=== PATIENT | female | born 1980 | race Caucasian/White ===

== ENCOUNTER 2017-09-11 09:08 | Emergency (ER) | payer MEDICAID ==
[~2017-09-11] VITALS: Ht 167.6 cm; Wt 54.0 kg
[~2017-09-11 09:08] MED LIST: BENZ-16 PO; CYCL-1 PO; GUAI5SYR5 PO; HYDR-565 PO; HYDR-569 PO; NORCO10T PO; ONDA4TAB12 PO; ONDA4TAB6 PO; PHEN-873 PO; TAMS0.4C32 PO
[2017-09-11 09:10] VITALS: BP 97/73
[2017-09-11] MEDS ORDERED: phenazopyridine 100mg tablet PO ONE (09:40)
[2017-09-11] MEDS ORDERED: ondansetron 4mg rapidly disintigrating tab PO ONE (09:40)
[2017-09-11 09:43] LABS: CLARITY,URINE CLOUDY (Clear); COLOR,URINE YELLOW (Yellow); GLUCOSE, URINE NEGATIVE (Neg); KETONES,URINE NEGATIVE (Neg); LEUKOCYTE ESTERASE ,URINE TRACE (Neg); NITRITES, URINE NEGATIVE (Neg); OCCULT BLOOD,URINE TRACE-INTACT (Neg); PROTEIN,URINE TRACE mg/dl (Neg); URINE HCG NEGATIVE (NEG); UROBILINOGEN,URINE 0.2 E.U/dL (0.2-1.0)
[2017-09-11 09:46] LABS: UA COLLECTION TYPE CLN CATCH MIDSTREAM
[2017-09-11 09:49] LABS: BASOPHILS % (AUTO) 0.5 % (0-1); EOSINOPHILS # (AUTO) 0.2 X10'3 (0-0.9); EOSINOPHILS % (AUTO) 2.8 % (0-6); HEMATOCRIT 39.9 % (35.0-45.0); HEMOGLOBIN 13.2 g/dl (12.0-16.0); LYMPHOCYTES # (AUTO) 1.7 X10'3 (1.1-4.8); LYMPHOCYTES % (AUTO) 23.8 % (21-51); MEAN CORPUSCULAR HEMOGLOBIN 28.8 PG (27.0-31.0); MEAN CORPUSCULAR HGB CONC 33.1 % (33.0-36.5); MEAN CORPUSCULAR VOLUME 87.1 FL (78-98); MEAN PLATELET VOLUME 8.2 FL (7.4-10.4); MONOCYTES # (AUTO) 0.4 X10'3 (0-0.9); MONOCYTES % (AUTO) 5.6 % (2-12); NEUTROPHILS # (AUTO) 4.9 X10'3 (1.8-7.7); NEUTROPHILS % (AUTO) 67.3 % (42-75); PLATELET COUNT 250 X10'3 (140-440); RED BLOOD COUNT 4.58 X10'6 (4.20-5.60); RED CELL DISTRIBUTION WIDTH 14.4 % (11.5-14.5); WHITE BLOOD COUNT 7.3 X10'3 (4.5-11.0)
[2017-09-11 09:54] LABS: ALANINE AMINOTRANSFERASE 19 U/L (12-78); ALBUMIN 3.9 G/DL (3.4-5.0); ALBUMIN/GLOBULIN RATIO 0.9 (1.1-1.5); ALKALINE PHOSPHATASE 82 IU/L (46-116); ANION GAP 10 (8-16); ASPARTATE AMINO TRANSFERASE 17 U/L (10-37); BILIRUBIN,TOTAL 0.4 MG/DL (0.1-1.0); BLOOD UREA NITROGEN 23 MG/DL (7-18); BUN/CREATININE RATIO 30.3 (6.6-38.0); CALCIUM 8.9 MG/DL (8.5-10.1); CHLORIDE 104 MMOL/L (99-107); CREATININE 0.76 MG/DL (0.40-0.90); GLUCOSE 103 MG/DL (70-104); POTASSIUM 3.5 MMOL/L (3.5-5.1); SODIUM 141 MMOL/L (135-145); TOTAL CARBON DIOXIDE 27.3 MMOL/L (24-32); TOTAL PROTEIN 8.3 G/DL (6.4-8.2); eGFR 86 ML/MIN
[2017-09-11 09:56] LABS: MUCUS STRANDS MANY /LPF (Neg); SQUAMOUS EPITHELIAL CELL,UR MANY /LPF (FEW)
[2017-09-11 09:58] LABS: TRANSITIONAL EPI CELLS,URINE MANY /HPF
[2017-09-11 09:59] LABS: WBC,URINE 30-50 /HPF (0-4)
[2017-09-11] MEDS ORDERED: PHEN-824 PO (09:59)
[2017-09-11] MEDS ORDERED: NITR100C6 PO (09:59)
[2017-09-11 10:00] LABS: BACTERIA,URINE 4+ /HPF (Neg); RBC,URINE 0-2 /HPF (0-2)
== END 2017-09-11 10:42 | disposition home or self-care (01) ==
LOC: ER 09:08
DX: N39.0 Urinary tract infection, site not specified (principal); G89.29 Other chronic pain; G43.909 Migraine, unspecified, not intractable, without status migrainosus; Z90.49 Acquired absence of other specified parts of digestive tract; Z88.5 Allergy status to narcotic agent; Z88.6 Allergy status to analgesic agent; Z79.899 Other long term (current) drug therapy
CPT/HCPCS: 36415; 80053; 81001; 81025; 85025; 99284